=== PATIENT | female | born 1995 | race Caucasian/White ===

== ENCOUNTER 2023-10-01 11:23 | Emergency (ER) | payer BC, SELFPAY ==
[2023-10-01 11:41] VITALS: BP 122/87; PULSE 93; RESP 20; TEMP 36.8; O2SAT 96
[2023-10-01 11:47] LABS: Appearance Urine Cloudy (Clear); Bacteria Urine Rare /hpf; Bilirubin Urine Negative (Negative); Blood Urine 3+ (Negative); Color Urine Dark Yellow (Yellow); Glucose Urine UA Negative (Negative); Ketones Urine Negative (Negative); Leukocyte Esterase Ur 3+ LEU/UL (Negative); Need Manual Microscopic Reviewed; Nitrate Urine Negative (Negative); Non Pathogenic Casts 0-2; Protein Urine 2+ mg/dL (Negative); RBC Urine 21-50 /hpf (0-2); Squamous Epithelial Cell Urine None Seen /hpf (Few); Urobilinogen Urine 0.2 mg/dL (<2.0); WBC Urine >100 /hpf (0-3); pH Urine 6.5 (5.0-9.0)
[2023-10-01 11:50] LABS: Specific Grav Ur 1.003 (1.001-1.035)
[2023-10-01 11:51] LABS: Add Urine Microscopic? YES
--- NOTE | 2023-10-01 12:17 | ED.GENADULT ---
HPI - General Adult General Chief complaint: Urogenital-Female Stated complaint: hematuria Time Seen by Provider: 10/01/23 11:57 Source: patient Mode of arrival: ambulatory Limitations: no limitations History of Present Illness HPI narrative: 28-year-old otherwise healthy here with the complaints of blood in the urine which started this morning. She denies any fever or chills. No history of nausea or vomiting. No previous history of kidney stones or kidney infections. No recent trauma Onset (ago): day(s) (1) Severity: moderate Quality: burning Relieving factors: none Exacerbating factors: none Associated symptoms: denies other symptoms Related Data Allergies Allergy/AdvReac Type Severity Reaction Status Date / Time Penicillins Allergy Headache Verified 10/01/23 11:41 Review of Systems Review of Systems: All systems reviewed & are unremarkable except as noted in HPI and below Constitutional: Constitutional: Reports no additional constitutional complaints Eyes: Eyes: Reports no additional eye complaints ENT: Reports system reviewed and no additional complaints, except as documented Cardiovascular: Cardiovascular: Reports no additional cardiovascular complaints Respiratory: Respiratory: Reports no additional respiratory complaints Gastrointestinal: Gastrointestinal: Reports no additional gastrointestinal complaints Genitourinary: Genitourinary: Reports as per HPI Musculoskeletal: Musculoskeletal: Reports no additional musculoskeletal complaints Neurologic: Reports system reviewed and no additional complaints, except as documented Exam Narrative: GENERAL: Well-appearing, well-nourished, and in no acute distress. HEAD: Normocephalic, atraumatic. EYES: PERRLA and EOMI. ENT: Nares clear, no rhinorrhea or epistaxis. Mucous membranes moist. NECK: Supple. CHEST: Clear to auscultation. No respiratory distress. HEART: Regular rate and rhythm. No murmur heard. Normal peripheral pulses. ABDOMEN: Soft, nontender, nondistended, normal active bowel sounds. EXTREMITIES: Normal range of motion. No edema. SKIN: Warm, dry, no rash. NEURO: No focal deficits. Alert and oriented x3. PSYCH: Normal mood and affect. Course Course Emergency Course: notified patient about the lab work advised her to take antibiotic as prescribed drink plenty of fluids as tolerated. Vital Signs Vital signs: Vital Signs Temperature 36.8 C 10/01/23 11:41 Pulse Rate 93 10/01/23 11:41 Respiratory Rate 20 10/01/23 11:41 Blood Pressure 122/87 10/01/23 11:41 Pulse Oximetry 96 10/01/23 11:41 Oxygen Delivery Room Air 10/01/23 11:41 Temperature 36.8 C 10/01/23 11:41 Pulse Rate 93 10/01/23 11:41 Respiratory Rate 20 10/01/23 11:41 Blood Pressure 122/87 10/01/23 11:41 Pulse Oximetry 96 10/01/23 11:41 Oxygen Delivery Room Air 10/01/23 11:41 Medical Decision Making Vital Signs Vital Signs: Vital Signs Temperature 36.8 C 10/01/23 11:41 Pulse Rate 93 10/01/23 11:41 Respiratory Rate 20 10/01/23 11:41 Blood Pressure 122/87 10/01/23 11:41 Pulse Oximetry 96 10/01/23 11:41 Oxygen Delivery Room Air 10/01/23 11:41 Temperature 36.8 C 10/01/23 11:41 Pulse Rate 93 10/01/23 11:41 Respiratory Rate 20 10/01/23 11:41 Blood Pressure 122/87 10/01/23 11:41 Pulse Oximetry 96 10/01/23 11:41 Oxygen Delivery Room Air 10/01/23 11:41 Lab Data Labs: Lab Results 10/01/23 Range/Units 11:30 Urine Color Dark yellow (Yellow) Urine Appearance Cloudy H (Clear) Urine pH 6.5 (5.0-9.0) Ur Specific Pollock 1.003 (1.001-1.035) Urine Protein 2+ H (Negative) mg/dL Urine Glucose (UA) Negative (Negative) mg/dL Urine Ketones Negative (Negative) mg/dL Ur Blood (Man) 3+ H (Negative) Urine Nitrate Negative (Negative) Urine Bilirubin Negative (Negative) Urine Urobilinogen 0.2 (<2.0) mg/dL Add Ur Microanalysis Reviewed Neri
== END 2023-10-01 12:44 | disposition home or self-care (01) ==
LOC: ANHED 12:21
PROVIDERS: Emergency Medicine; Emergency Provider Family Medicine
DX: N39.0 Urinary tract infection, site not specified (principal)
CPT/HCPCS: 81001; 81025; 87077; 87086; 87088; 87186; 99283

== ENCOUNTER 2024-11-16 13:48 | Observation (INO) | payer BC, SELFPAY ==
[2024-11-16] VITALS (7 sets, daily range): BP systolic 119–168; BP diastolic 66–92; PULSE 53–98; RESP 16–20; TEMP 36.4–36.9; O2SAT 98–100; BMI 24.2
--- NOTE | ~2024-11-16 | CT_ITS ---
EXAMINATION: CT abdomen pelvis wo con DATE: 11/16/2024 16:59 INDICATION: Left flank pain. Nephrolithiasis. TECHNIQUE: Computed tomography (CT) of the abdomen and pelvis was performed without intravenous contr ast. Automated exposure control and iterative reconstruction technique were employed. The dose-length product was 160.13 mGy-cm. COMPARISON: None FINDINGS: Lung bases are clear. Visualized inferior heart is unremarkable. Small pericardial effusion. Liver, g allbladder, spleen, pancreas and bilateral adrenal glands are normal. There is at least partially obs tructing stone at the left ureterovesicular junction with mild left hydroureter but without hydroneph rosis. There is some stranding periureteral stranding along the left ureter. Right kidney is normal w ith no evident right-sided urolithiasis. Bowels including the appendix are normal. Partially decompre ssed bladder is unremarkable. Anteverted uterus and bilateral adnexa are unremarkable. Small amount o f likely physiologic free fluid in the cul-de-sac. No pathologically enlarged abdominal or pelvic lym phadenopathy. Bones are unremarkable. IMPRESSION: 1. At least partially obstructing 4 mm stone at the left ureterovesicular junction with mild left hyd roureter but without cathy hydronephrosis. Reviewed, dictated and finalized at location A. IMPRESSION: 1. At least partially obstructing 4 mm stone at the left ureterovesicular junct ion with mild left hydroureter but without cathy hydronephrosis.
--- OUTSIDE RECORDS SUMMARY | 2024-11-16 13:59 | XMS_ITS | Clinical Summary ---
Author Organization [facility] Address [address], [facility] [address] [place] [address] Phone Care Team Providers Care Manager Product Management Name Role Phone Swathi Bryan MD Unavailable Katharine Barboza APRN, CN Primary Care Provider Allergies Active Allergy Reactions Criticality Noted Date Comments Penicillins Unknown,Other (see Comments) 2018 Body aches Sulfa Antibiotics Unknown,Other (see Comments) 07/16/2021 Body aches Medications Vit-Fe Fumarate-FA ( VITAMIN PO) Take by mouth. Active Active Problems Problem Noted Date Diagnosed Date Iron deficiency 05/22/2024 Social History Tobacco Use Types Packs/Day Years Used Date Smoking Tobacco: Former Cigarettes Q uit: 11/14/2023 Smokeless Tobacco: Never Tobacco Cessation:Counseling Given: No Alcohol Use Standard Drinks/Week Comments Never 0 (1 standard drink = 0.6 oz pur e alcohol) Comments Unknown Sex and Gender Information Value Date Recorded Sex Assigned at Not on file Legal Sex Female 4:40 PM FINISHER HAND Gender Identity Not on file Sexual Orientation Not on file Last Filed Vital Signs Vital Sign Reading Time Taken Comments Blood Pressure 118/70 08/03/2024 8:35 AM CDT Pulse 78 08/03/2024 8:35 AM CDT Temperature 36.5 C (97.7 F) 08/03/2024 8:35 AM CDT Respiratory Rate - - Oxygen Saturation 98% 08/03/2024 8:35 AM CDT Inhaled Oxygen Concentration - - Weight 64 kg (141 lb) 08/03/2024 8:35 AM CDT Height 163.8 cm (5' 4.5) 08/03/2024 8:35 AM CDT Body Mass Index 23.83 08/03/2024 8:35 AM CDT Plan of Treatment Health Maintenance Due Date Last Done Comments Pap Smear 01/29/2017 SARS-COV-2 Immunization ( season) 2023 05/08/2023 Influenza Immunization (#1) 2024 05/08/2023 Respiratory Syncytial Virus (RSV) Immunization (Adult) (1 - 1-dose 75+ series) 01/29/2071 Hepatitis B Immunization Completed 997, 1996, 1996 Human Papillomavirus (HPV) Immunization Completed 12/10/2007, 08/06/2007, 06/04/2007 TdaP Immunization Completed 05/08/2023, 07/19/2014 Hepatitis C Virus (HCV) Screening Completed 12/13/2023 Meningococcal Immunization (ACWY) Aged Out No longer eligible b ased on patient's age to complete this topic Pneumococcal Immunization Combined Aged Out No longer eligible b ased on patient's age to complete this topic Rotavirus Immunization Aged Out No lo nger eligible based on patient's age to complete this topic Insurance MEDICAID [place] Care Teams Manager Product Management Relationship Specialty Start Date End Date Katharine Barboza, СЕРГЕЙ, RAYSA [address] [place] [address] PCP - General Advanced Practice Nurse 05/22/24 Swathi Bryan MD [address] [address] Consulting Physician Oncology 05/21/24
--- OUTSIDE RECORDS SUMMARY | 2024-11-16 13:59 | XMS_ITS | Encounter Summary ---
Author Organization [facility] Address [address] [place] [address] Phone Care Team Providers Care Dwarf Tree Grower Name Role Phone Swathi Bryan MD Unavailable Katharine Barboza APRN, CNM Primary Care Provider Encounter Details Date Type Department Care Team (Late st Contact Info) Description 05/28/2024 Telephone [facility] [address], [facility] [address] [place] [id number] Swathi Bryan MD [address] [place] [address] Social History Tobacco Use Types Packs/Day Years Used Date Smoking Tobacco: Former Cigarettes Q uit: 11/14/2023 Smokeless Tobacco: Never Alcohol Use Standard Drinks/Week Comments Never 0 (1 standard drink = 0.6 oz pur e alcohol) Comments Unknown Sex and Gender Information Value Date Recorded Sex Assigned at Not on file Legal Sex Female 4:40 PM CHOKER SETTER Gender Identity Not on file Sexual Orientation Not on file documented as of this encounter Plan of Treatment Not on file documented as of this encounter Visit Diagnoses Not on filedocumented in this encounter Care Teams Dwarf Tree Grower Relationship Specialty Start Date End Date Katharine Barboza APRN, CNM [address] [place] [address] PCP - General Advanced Practice Nurse 05/22/24 Swathi Bryan MD [address] [id number] Consulting Physician Oncology 05/21/24 documented as of this encounter
--- OUTSIDE RECORDS SUMMARY | 2024-11-16 13:59 | XMS_ITS | Clinical Summary ---
Author Organization [facility] [employer] Address [address] [place] [address] Care Team Providers Care Anesthesia Associate Name Role Phone Jabari, Katharinebrandon Sanderson APRN[facility] Primary Care Provider Source Comments [facility],non-owned Affiliates and Associated Physician Practices is amultiple site organization consisting of ambulatory clinics and hospital sitesin [place], [place], [place] and [place]. This disclosure is being madepursuant to the Care Everywhere program and may not contain all information available regarding this patient. Last updated 18.[facility] [employer] Allergies Active Allergy Reactions Criticality Noted Date Comments Penicillins Other 07/16/2021 Body aches Sulfa Drugs Other 07/16/2021 Body aches Medications * Be aware that medications may not be up to date on this document. Alwaysverify current medications with the patient. 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 Social History Tobacco Use Types Packs/Day Years Used Date Smoking Tobacco: Every Day Cigarettes Smokeless Tobacco: Never Tobacco Cessation:Ready to Q uit: Not Asked; Counseling Given: Not Answered PHQ-2 Answer Date Recorded PHQ2 TOTAL SCORE 0 10/13/2022 Comments No Sex and Gender Information Value Date Recorded Sex Assigned at Not on file Legal Sex Female 12:47 PM CDT Gender Identity Not on file Sexual Orientation Not on file Last Filed Vital Signs Vital Sign Reading Time Taken Comments Blood Pressure 112/64 10/13/2022 12:45 PM CDT Pulse 85 10/13/2022 12:45 PM CDT Temperature 36.3 C (97.3 F) 07/16/2021 1:05 PM CDT Respiratory Rate 16 07/16/2021 1:05 PM CDT Oxygen Saturation 99% 10/13/2022 12:45 PM CDT Inhaled Oxygen Concentration - - Weight 55.1 kg (121 lb 8 oz) 10/13/2022 12:45 PM CDT Height - - Body Mass Index - - Plan of Treatment Health Maintenance Due Date Last Done Comments HIV SCREENING 01/29/2011 DTAP/TDAP/TD VACCINES (1 - Tdap) 01/29/2015 HEPATITIS B VACCINE (1 of 3 - 19+ 3-dose series) 01/29/2015 PNEUMOCOCCAL VACCINE (1 of 2 - PCV) 01/29/2015 PAP SMEAR 01/29/2017 HPV VACCINE (1 - 3-dose SCDM series) 01/29/2023 COVID-19 VACCINE (1 - 2023-2 5 season) 2023 DEPRESSION SCREENING 04/15/2024 10/13/2022 INFLUENZA VACCINE (#1) 2024 ZOSTER VACCINE (1 of 2) 01/29/2046 HEPATITIS C SCREENING Completed 12/13/2023 HIB VACCINE Aged Out No longer eligi ble based on patient's age to complete this topic MENINGOCOCCAL (Group B) VACC INE SHARED DECISION-MAKING Aged Out No longer eligibl e based on patient's age to complete this topic MENINGOCOCCAL GROUPS A/C/Y/W VACCINE Aged Out No longer eligible b ased on patient's age to complete this topic Insurance [facility] MEDICAID Care Teams Anesthesia Associate Relationship Specialty Start Date End Date Katharine Barboza, MONTESSORI TEACHER-CNM [address] [place] [phone] PCP - General Certified Nurse Information Services Tech 05/22/24
--- OUTSIDE RECORDS SUMMARY | 2024-11-16 13:59 | XMS_ITS | Clinical Summary ---
Author Organization [facility] Address [address] [place] [address] Phone Care Team Providers Care Preschool Principal Name Role Phone Geovanna Evangelista DO Primary Care Provider [phone] Allergies No known active allergies Medications oxyCODONE-acetam inophen (PERCOCET) 5-325 mg tablet Take 1 Tablet by mouth every 6 hours as needed for Pain. Max Daily Amount: 4 Tablet 20 Tablet 0 05/11/2015 Active Active Problems Patient Care Coordination No te Formatting of this note migh t be different from the original. 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 Iron deficiency Resolved Problems Problem Noted Date Diagnosed Date Resolved Date Breast lump 04/25/2015 05/24/2015 Social History Tobacco Use Types Packs/Day Years Used Date Smoking Tobacco: Never Smokeless Tobacco: Never Alcohol Use Standard Drinks/Week Comments No 0 (1 standard drink = 0.6 oz pur e alcohol) Comments No Sex and Gender Information Value Date Recorded Sex Assigned at Not on file Legal Sex Female 1:08 PM SYSTEM TRAINER Gender Identity Not on file Sexual Orientation Not on file Last Filed Vital Signs Vital Sign Reading Time Taken Comments Blood Pressure 104/70 05/24/2015 2:17 PM SYSTEM TRAINER Pulse 93 05/24/2015 2:17 PM SYSTEM TRAINER Temperature 36.5 C (97.7 F) 05/11/2015 11:15 AM SYSTEM TRAINER Respiratory Rate 16 05/11/2015 11:15 AM SYSTEM TRAINER Oxygen Saturation 100% 05/11/2015 11:15 AM SYSTEM TRAINER Inhaled Oxygen Concentration - - Weight 56.7 kg (125 lb) 05/24/2015 2:17 PM SYSTEM TRAINER Height 160 cm (5' 3) 05/24/2015 2:17 PM SYSTEM TRAINER Body Mass Index 22.14 05/24/2015 2:17 PM SYSTEM TRAINER Plan of Treatment Health Maintenance Due Date Last Done Comments HPV VACCINES (1 - 3-dose series) 01/29/2011 DTAP/TDAP/TD VACCINES (1 - Tdap) 01/29/2015 HEPATITIS B VACCINES (1 of 3 - 19+ 3-dose series) 01/13 CERVICAL CANCER SCREENING 01/29/2017 HPV/Cotest (21-29) 01/29/2017 PAP SMEAR 01/29/2017 INFLUENZA VACCINE (#1) 2024 Insurance [employer] PPO Advance Directives For more information, please contact: [phone] * Full Code (Latest Code Status on File) Date Activated Date Inactivated Comments 05/11/2015 8:08 AM 05/11/2015 2:06 PM * Full Code Date Activated Date Inactivated Comments 05/11/2015 7:00 AM 05/11/2015 8:08 AM Care Teams Preschool Principal Relationship Specialty Start Date End Date Geovanna Evangelista DO [address] [place] [address] [place] [address] PCP - General Family Practice 04/25/15
--- OUTSIDE RECORDS SUMMARY | 2024-11-16 14:00 | XMS_ITS | Clinical Summary ---
Author Organization [facility] Address [address] [place] [address] Care Team Providers Care Openstack Cloud Consulting Architect Name Role Phone Geovanna Evangelista DO Primary Care Provider [phone] Allergies Active Allergy Reactions Criticality Noted Date Comments Penicillin V Headache Low 12/18/2018 Sulfa Antibiotics Other (see comment) Low Body aches Medications FERROUS SULFATE, 65 MG ELEMENTAL, 325 (65 FE) MG tabletIndication s:Iron deficiency TAKE 1 TABLET BY MOUTH EVERY DAY 90 tablet 1 04/01/2021 Active Active Problems Problem Noted Date Diagnosed Date Encounter for elective induction of labor ([facility]) 07/19/2024 Iron deficiency 10/28/2020 Ureteral calculus 12/18/2018 Post-nasal drainage 06/05/2017 Overview (10/28/2020): Date Onset: 06/05/2017 Sore throat 06/05/2017 Overview (10/28/2020): Date Onset: 06/05/2017 Bruxism (teeth grinding) 08/09/2015 Overview (10/28/2020): Date Onset: 08/09/2015 Insomnia 08/09/2015 Overview (10/28/2020): Date Onset: 08/09/2015 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 Anemia 02/20/2013 Overview (10/28/2020): Date Onset: 02/20/2013 Heavy menses 02/20/2013 Overview (10/28/2020): Date Onset: 02/20/2013 Immunizations Immunization Administration Dates Next Due Dtap (Generic) 08/07/2000, 8,1996,1996,06/1996 HPV 12/10/2007,08/06/2007,06/04/2007 Hepatitis A Vaccine - 2 Dose 06/04/2007,11/28/19 07 Hepatitis B 1996,1996,1996 Hib (Generic) 05/21/1997,1996,1996 ,1996 MMR (Generic) 08/07/2000,05/21/1997 MMR (MMRII) 07/21/2024 Opv 08/07/2000,05/21/1997,1996 ,1996 Tdap (Generic) 07/19/2014 Varicella Vaccine 11/27/2006,08/07/2000 Family History * Patient is adopted Relation Status Comments Father Other Mother Other adopted Social History Tobacco Use Types Packs/Day Years Used Date Smoking Tobacco: Never Smokeless Tobacco: Never Tobacco Cessation:Counseling Given: No Alcohol Use Standard Drinks/Week Comments No 0 (1 standard drink = 0.6 oz pur e alcohol) B1300 Health Literacy Answer Date Recor ded How often do you need to hav e someone help you when you read instructions, pamphlets, or other written material from your doctor or pharmacy? Never 07/19/2024 [employer] Answer Date Recorded In the past 12 months has th e [employer], oil, or water [employer] threatened to shut off services in your home? No 07/19/2024 Humiliation, Afraid, Rape, and Kick questionnair e Answer Date Recorded Within the last year, have y ou been afraid of your partner or ex-partner? No 07/19/2024 Within the last year, have y ou been humiliated or emotionally abused in other ways by your partner or ex-partner? No Within the last year, have y ou been kicked, hit, slapped, or otherwise physically hurt by your partner or ex-partner? No 07/19/2024 Within the last year, have y ou been raped or forced to have any kind of sexual activity by your partner or ex-partner? No 07/19/2024 Social Connection and Isolat ion Panel [NHANES] Answer Date Recorded In a typical week, how many times do you talk on the phone with family, friends, or neighbors? Twice a week 07/19/2024 How often do you get togethe r with friends or relatives? Twice a week 07/19/2024 How often do you attend chur ch or cheondoism services? More than 4 times per year 07/19/2024 Do you belong to any clubs o r organizations such as uatsdin groups, unions, fraternal or athletic groups, or school groups? No 07/19/2024 How often do you attend meet ings of the clubs or organizations you belong to? Never 07/19/2024 Are you , , di vorced, , never , or living with a partner? Living with partner 07/19/2024 AUDIT-C Answer Date Recorded Q1: How often do you have a drink containing alcohol? Never 07/19/2024 Q2: How many drinks containi ng alcohol do you have on a typical day when you are drinking? Patient does not drink Q3: How often do you have si x or more drinks on one occasion? Never 07/19/2024 Overall Financial Resource Strain (CARDIA) Answe r Date Recorded How hard is it for you to pa y for the very basics like food, housing, medical care, and heating? Not hard at all 07/19/2024 PHQ-2 Answer Date Recorded PHQ-2 Score - If the patient scores above 3, please move on to questions 3-9 0 12/25/2021 [facility] Occupat [facility] - Occupational Stress Questionnaire Answer Date Recorded Do you feel stress - tense, restless, nervous, or anxious, or unable to sleep at night because your mind is troubled all the time - these days? Not at all 07/19/2024 Exercise Vital Sign Answer Date Recorde d On average, how many days pe r week do you engage in moderate to strenuous exercise (like a brisk walk)? 4 days 07/19/2024 On average, how many minutes do you engage in exercise at this level? 20 min 07/19/2024 Hunger Vital Sign Answer Date Recorded Within the past 12 months, y ou worried that your food would run out before you got the money to buy more. Never true 07/20/19 25 Within the past 12 months, t he food you bought just didn't last and you didn't have money to get more. Never true 07/19/2024 PRAPARE - Transportation Answer Date Re corded In the past 12 months, has l ack of transportation kept you from medical appointments or from getting medications? No 09/2024 In the past 12 months, has l ack of transportation kept you from meetings, work, or from getting things needed for daily living? No 07/19/2024 Housing Stability Vital Sign Answer Gerber e Recorded In the last 12 months, was t here a time when you were not able to pay the mortgage or rent on time? No 07/19/2024 In the past 12 months, how m any times have you moved where you were living? 0 07/19/2024 At any time in the past [address] [facility], were you homeless or living in a jail (including now)? No 07/19/2024 Depression Answer Date Recor ded Last EPDS Total Score 0 07/22/2024 Last EPDS Self Harm Result Never 07/22 Comments No Sex and Gender Information Value Date Recorded Sex Assigned at Female 05/04/2024 10:02 AM OXYGEN THERAPY TEACHER Legal Sex Female 7:53 AM CDT Gender Identity Not on file Sexual Orientation Not on file Last Filed Vital Signs Vital Sign Reading Time Taken Comments Blood Pressure 115/67 07/22/2024 9:21 AM CDT Pulse 71 07/22/2024 9:21 AM CDT Temperature 36.6 C (97.9 F) 07/22/2024 9:21 AM CDT Respiratory Rate 20 07/22/2024 9:21 AM CDT Oxygen Saturation 99% 07/21/2024 6:15 PM CDT Inhaled Oxygen Concentration - - Weight 73.9 kg (163 lb) 07/19/2024 9:00 PM CDT Height 160 cm (5' 3) 07/19/2024 9:00 PM CDT Body Mass Index 28.87 07/19/2024 9:00 PM CDT Plan of Treatment Health Maintenance Due Date Last Done Comments Cervical Cancer Screening Pap Smear (Age 21 to 29) Every 3 Years 1996 Cervical Cancer Screening 1996 Annual Physical 01/29/1999 COVID-19 Vaccine ( season) 2023 05/08/2023 PHQ-2 (Physician [place]) 04/15/2024 DTaP, Tdap and Td Vaccines (8 - Td or Tdap) 05/08/2033 05/08/2023, 07/19/2014, 08/07/2000, Additional history exists Hepatitis B Vaccines Completed 1996, 1996, 1996 HPV Vaccines Completed 12/10/2007, 07/15, 06/04/2007 Hepatitis C Completed 12/13/2023 Meningococcal B Vaccine Aged Out No l onger eligible based on patient's age to complete this topic Meningococcal Vaccine Aged Out No prabhakar gume eligible based on patient's age to complete this topic Pneumococcal Vaccine: Pediatrics (0 to 5 Years) and At-Risk Patients (6 to 49 Years) Aged Out No longer eligible based on patient's age to complete this topic RSV Immunizations Under 20 Months Aged Out No longer eligible based on patient's age to complete this topic Procedures Procedure Name Priority Date/Time Associated Diagnosis Comments HEPATITIS C ANTIBODY Routine 12/13/2023 10:47 AM CDT Screening for -associate d plasma protein A (HHS/HCC) from Last 3 Months or Most Recently Relevant to Health Maintenance Results * HEPATITIS C ANTIBODY (12/13/2023 10:47 AM CDT) HEPATITIS C AB NON-REACTI VE NON-REACTI VE 12/13/2023 8:27 PM CDT [facility] 12/13/2023 10:4 7 AM CDT us Katharine Barboza CNM LABORATORY Final Result [facility] [address] [place] [address], from Last 3 Months or Most Recently Relevant to Health Maintenance Insurance [facility] C/O PROVIDER SERVICES BORIS LEIJA [id number] Advance Directives * Full Code (Latest Code Status on File) Date Activated Date Inactivated Comments 07/19/2024 9:09 PM 07/22/2024 2:03 PM * Full Code Date Activated Date Inactivated Comments 05/13/2024 3:05 PM 05/13/2024 6:58 PM Care Teams Openstack Cloud Consulting Architect Relationship Specialty Start Date End Date Geovanna Evangelista DO [address] [place] [address] [place] [address] PCP - General FAMILY PRACTICE 12/18/18
--- NOTE | 2024-11-16 14:22 | ED.ABDPAIN ---
HPI - Abdominal Pain General Chief Complaint: Abdominal Pain <Holden Elias APRN - Last Filed: 11/16/24 14:24> Stated Complaint: lower abdominal pain x2 hours <Holden Elias APRN - Last Filed: 11/16/24 14:24> Time Seen by Provider: 11/16/24 17:56 <Holden Elias APRN - Last Filed: 11/16/24 14:24> 29-year-old female presents to the ER complaining of left flank pain for approximately 2 hours. Said sternal left flank and radiated to her left lower abdomen. Patient reports intermittent nausea. She denies any vomiting or diarrhea, or urinary symptoms. Patient says she has a history of kidney stones. Patient denies any fevers, body aches, chills, chest pains, difficulty breathing, or other symptoms. Focused HPI: GENERAL: Well-appearing, well-nourished, and in no acute distress. HEAD: Normocephalic, atraumatic. CHEST: Clear to auscultation. ?No respiratory distress. HEART: Regular rate and rhythm.? GI: Abdomen is soft, nondistended, nontender. No guarding or rigidity. No rebound tenderness. No CVA tenderness. No palpable masses. Bowel sounds are active. NEURO: ?Alert and oriented x3. Patient screened in triage and initial orders placed.? ?Additional care and disposition to be based upon?diagnostic testing and treatment. <Holden Elias APRN - Last Filed: 11/16/24 14:24> History of Present Illness HPI narrative: 29-year-old female with reported history of kidney stone presents to the emergency department for left flank pain left lower quadrant abdominal pain that started at 12:00 p.m. today. Patient reports associated nausea with 1 episode of emesis. She endorses dysuria, urinary frequency and urgency. She denies fever. She does state about 6 years ago she had a urologic procedure performed for kidney stones which she is unsure what it was called. She notes that she had a vaginal delivery in July, she is not currently . Patient received IM Toradol in triage with reported improvement but states pain is starting to return. <Kanchan Calhoun PA-C - Last Filed: 11/16/24 19:39> Related Data Allergies/Adverse Reactions: Allergies Allergy/AdvReac Type Severity Reaction Status Date / Time Penicillins Allergy Headache Verified 11/16/24 13:58 <Holden Elias APRN - Last Filed: 11/16/24 14:24> Review of Systems Review of Systems: All systems reviewed & are unremarkable except as noted in HPI and below <Kanchan Calhoun PA-C - Last Filed: 11/16/24 19:39> Exam Narrative: GENERAL: Well-appearing, well-nourished, and in no acute distress. HEAD: Normocephalic, atraumatic. EYES: EOMI. ENT: Nares clear, no rhinorrhea or epistaxis. Mucous membranes moist. NECK: Supple. CHEST: Clear to auscultation. No respiratory distress. HEART: Regular rate and rhythm. No murmur heard. Normal peripheral pulses. ABDOMEN: Normoactive bowel sounds. Minimal tenderness to the left lower quadrant. No rebound or rigidity. Mild left CVA tenderness EXTREMITIES: Normal range of motion. No edema. SKIN: Warm, dry, no rash. NEURO: No focal deficits. Alert and oriented x3 <Kanchan Calhoun PA-C - Last Filed: 11/16/24 19:39> Course DISTILLATION OPERATOR HELPER/PA Physician Supervision i did review thechart , agree with the plan <Fox Nolen MD - Last Filed: 11/16/24 18:49> Vital Signs Vital signs: Vital Signs Temperature 36.4 C L 11/16/24 13:59 Pulse Rate 53 L 11/16/24 13:59 Respiratory Rate 16 11/16/24 13:59 Blood Pressure 168/88 H 11/16/24 13:59 Pulse Oximetry 100 11/16/24 13:59 Oxygen Delivery Room Air 11/16/24 13:59 Temperature 36.8 C 11/16/24 17:56 Pulse Rate 98 11/16/24 17:56 Respiratory Rate 16 11/16/24 17:56 Blood Pressure 127/66 11/16/24 17:56 Pulse Oximetry 99 11/16/24 17:56 Oxygen Delivery Room Air 11/16/24 13:59 <Holden Elias APRN - Last Filed: 11/16/24 14:24> Vital Signs Temperature 36.4 C L 11/16/24 13:59 Pulse Rate 53 L 11/16/24 13:59 Respiratory Rate 16 11/16/24 13:59 Blood Pressure 168/88 H 11/16/24 13:59 Pulse Oximetry 100 11/16/24 13:59 Oxygen Delivery Room Air 11/16/24 13:59 Temperature 36.8 C 11/16/24 17:56 Pulse Rate 98 11/16/24 17:56 Respiratory Rate 16 11/16/24 17:56 Blood Pressure 127/66 11/16/24 17:56 Pulse Oximetry 99 11/16/24 17:56 Oxygen Delivery Room Air 11/16/24 13:59 <Kanchan Calhoun PA-C - Last Filed: 11/16/24 19:39> Vital Signs Temperature 36.4 C L 11/16/24 13:59 Pulse Rate 53 L 11/16/24 13:59 Respiratory Rate 16 11/16/24 13:59 Blood Pressure 168/88 H 11/16/24 13:59 Pulse Oximetry 100 11/16/24 13:59 Oxygen Delivery Room Air 11/16/24 13:59 Temperature 36.8 C 11/16/24 17:56 Pulse Rate 98 11/16/24 17:56 Respiratory Rate 16 11/16/24 17:56 Blood Pressure 127/66 11/16/24 17:56 Pulse Oximetry 99 11/16/24 17:56 Oxygen Delivery Room Air 11/16/24 13:59 <Fox Nolen MD - Last Filed: 11/16/24 18:49> MDM - Abdominal Pain MDM Narrative Medical decision making narrative: 29-year-old female presents emergency department for left flank pain left lower quadrant abdominal pain that started at 12:00 p.m. today. Vitals stable at the time of my evaluation. Patient is afebrile and nontoxic appearing. Exam is notable for the above. CBC with leukocytosis of 13.3 and hemoconcentration with a hemoglobin of 15.9. Fluids provided. Chemistries with normal creatinine. UA indicative of urinary tract infection with 5100 white blood cells, greater than 100 RBCs, 1+ leuk esterase and 4+ bacteria. There is many squamous epithelial cells. Urine culture pending. is negative. CT abdomen pelvis shows at least partially obstructing 4 mm stone at the left ureterovesicular junction with mild left hydroureter but without cathy hydronephrosis. Patient updated on results. Discussed case with Urology on-call, Dr. Carroll, who advises admission, Rocephin, nightly Flomax, strain all urine. Patient agrees to admission. Discussed with hospitalist DISTILLATION OPERATOR HELPER, Aníbal, who agrees to admission. Morphine and Zofran provided for symptomatic control. <Kanchan Calhoun PA-C - Last Filed: 11/16/24 19:39> Lab Data Result diagrams: 11/16/24 16:37 11/16/24 16:37 <Holden Elias APRN - Last Filed: 11/16/24 14:24> Labs: Lab Results 11/16/24 11/16/24 Range/Units 16:37 16:41 WBC 13.3 H (4.5-10.0) K/mm3 RBC 4.95 (4.2-5.4) M/mm3 Hgb 15.9 H (12.0-15.0) g/dL Hct 45.3 (37.0-47.0) % MCV 91.5 (80-100) fl MCH 32.1 (26-34) pg MCHC 35.1 (32-36) g/dl RDW 12.3 (11.5-14.5) % Plt Count 180 (150-375) k/mm3 MPV 12.2 H (7.4-10.4) fl Immature Gran % (Auto) 0.5 (0-0.5) % Neut % (Auto) 89.9 H (45.5-73.1) % Lymph % (Auto) 7.8 L (18.3-44.2) % [place] % (Auto) 1.6 L (2.6-8.5) % Eos % (Auto) 0.0 (0-4.4) % Baso % (Auto) 0.2 (0.2-1.2) % Lymph # (Auto) 1.04 (0.9-3.2) K/mm3 [place] # (Auto) 0.2 (0.1-0.6) K/mm3 Eos # (Auto) 0.0 (0-0.3) K/mm3 Baso # (Auto) 0.0 (0.0-0.1) K/mm3 Abs Immat Gran (auto) 0.06 H (0.00-0.031) K/mm3 Absolute Neuts (auto) 11.9 H (1.3-6.7) K/mm3 Absolute Nucleated RBC 0.000 (0.0-0.012) K/mm3 Nucleated RBC % 0.0 (0.0-0.2) % Sodium 141 (137-145) mmol/L Potassium 4.1 (3.4-5.0) mmol/L Chloride 106 (98-107) mmol/L Carbon Dioxide 23 (22-30) mmol/L Anion Gap 12 (4-12) mmol/L BUN 18 H (7-17) mg/dL Creatinine 0.99 (0.7-1.0) mg/dL Estim Creat Clear Calc 62 ml/min Estimated GFR > 60 (59 - ) Glucose 116 H (65-110) mg/dL Calcium 10.0 (8.4-10.2) mg/dL Total Bilirubin 0.8 (0.2-1.3) mg/dL AST 29 (14-36) U/L ALT 20 (6-35) U/L Alkaline Phosphatase 59 (38-126) U/L Total Protein 9.1 H (6.3-8.2) g/dL Albumin 5.3 H (3.5-5.1) g/dL Urine Color Dark yellow (Yellow) Urine Appearance Cloudy H (Clear) Urine pH 7.0 (5.0-9.0) Ur Specific [employer] 1.032 (1.001-1.035) Urine Protein 2+ H (Negative) mg/dL Urine Glucose (UA) Negative (Negative) mg/dL Urine Ketones 4+ H (Negative) mg/dL Ur Blood (Man) 3+ H (Negative) Urine Nitrate Negative (Negative) Urine Bilirubin Negative (Negative) Urine Urobilinogen 1.0 (<2.0) mg/dL Add Ur Microanalysis Reviewed Leukocyte Esterase Rfl 1+ H (Negative) GENNA/UL Urine RBC >100 H (0-2) /hpf Urine WBC 51-100 H (0-3) /hpf Ur Squamous Epith Cells Many H (Few) /hpf Urine Bacteria 4+ H /hpf Urine Casts 3-5 Urine Mucus Present /lpf POC Urine HCG, Qual Negative (Negative) <Holden Elias, ELECTRONIC SCALE TESTER - Last Filed: 11/16/24 14:24> Lab Results 11/16/24 11/16/24 Range/Units 16:37 16:41 WBC 13.3 H (4.5-10.0) K/mm3 RBC 4.95 (4.2-5.4) M/mm3 Hgb 15.9 H (12.0-15.0) g/dL Hct 45.3 (37.0-47.0) % MCV 91.5 (80-100) fl MCH 32.1 (26-34) pg MCHC 35.1 (32-36) g/dl RDW 12.3 (11.5-14.5) % Plt Count 180 (150-375) k/mm3 MPV 12.2 H (7.4-10.4) fl Immature Gran % (Auto) 0.5 (0-0.5) % Neut % (Auto) 89.9 H (45.5-73.1) % Lymph % (Auto) 7.8 L (18.3-44.2) % [place] % (Auto) 1.6 L (2.6-8.5) % Eos % (Auto) 0.0 (0-4.4) % Baso % (Auto) 0.2 (0.2-1.2) % Lymph # (Auto) 1.04 (0.9-3.2) K/mm3 [place] # (Auto) 0.2 (0.1-0.6) K/mm3 Eos # (Auto) 0.0 (0-0.3) K/mm3 Baso # (Auto) 0.0 (0.0-0.1) K/mm3 Abs Immat Gran (auto) 0.06 H (0.00-0.031) K/mm3 Absolute Neuts (auto) 11.9 H (1.3-6.7) K/mm3 Absolute Nucleated RBC 0.000 (0.0-0.012) K/mm3 Nucleated RBC % 0.0 (0.0-0.2) % Sodium 141 (137-145) mmol/L Potassium 4.1 (3.4-5.0) mmol/L Chloride 106 (98-107) mmol/L Carbon Dioxide 23 (22-30) mmol/L Anion Gap 12 (4-12) mmol/L BUN 18 H (7-17) mg/dL Creatinine 0.99 (0.7-1.0) mg/dL Estim Creat Clear Calc 62 ml/min Estimated GFR > 60 (59 - ) Glucose 116 H (65-110) mg/dL Calcium 10.0 (8.4-10.2) mg/dL Total Bilirubin 0.8 (0.2-1.3) mg/dL AST 29 (14-36) U/L ALT 20 (6-35) U/L Alkaline Phosphatase 59 (38-126) U/L Total Protein 9.1 H (6.3-8.2) g/dL Albumin 5.3 H (3.5-5.1) g/dL Urine Color Dark yellow (Yellow) Urine Appearance Cloudy H (Clear) Urine pH 7.0 (5.0-9.0) Ur Specific [employer] 1.032 (1.001-1.035) Urine Protein 2+ H (Negative) mg/dL Urine Glucose (UA) Negative (Negative) mg/dL Urine Ketones 4+ H (Negative) mg/dL Ur Blood (Man) 3+ H (Negative) Urine Nitrate Negative (Negative) Urine Bilirubin Negative (Negative) Urine Urobilinogen 1.0 (<2.0) mg/dL Add Ur Microanalysis Reviewed Leukocyte Esterase Rfl 1+ H (Negative) GENNA/UL Urine RBC >100 H (0-2) /hpf Urine WBC 51-100 H (0-3) /hpf Ur Squamous Epith Cells Many H (Few) /hpf Urine Bacteria 4+ H /hpf Urine Casts 3-5 Urine Mucus Present /lpf POC Urine HCG, Qual Negative (Negative) <Kanchan Calhoun PA-C - Last Filed: 11/16/24 19:39> Lab Results 11/16/24 11/16/24 Range/Units 16:37 16:41 WBC 13.3 H (4.5-10.0) K/mm3 RBC 4.95 (4.2-5.4) M/mm3 Hgb 15.9 H (12.0-15.0) g/dL Hct 45.3 (37.0-47.0) % MCV 91.5 (80-100) fl MCH 32.1 (26-34) pg MCHC 35.1 (32-36) g/dl RDW 12.3 (11.5-14.5) % Plt Count 180 (150-375) k/mm3 MPV 12.2 H (7.4-10.4) fl Immature Gran % (Auto) 0.5 (0-0.5) % Neut % (Auto) 89.9 H (45.5-73.1) % Lymph % (Auto) 7.8 L (18.3-44.2) % [place] % (Auto) 1.6 L (2.6-8.5) % Eos % (Auto) 0.0 (0-4.4) % Baso % (Auto) 0.2 (0.2-1.2) % Lymph # (Auto) 1.04 (0.9-3.2) K/mm3 [place] # (Auto) 0.2 (0.1-0.6) K/mm3 Eos # (Auto) 0.0 (0-0.3) K/mm3 Baso # (Auto) 0.0 (0.0-0.1) K/mm3 Abs Immat Gran (auto) 0.06 H (0.00-0.031) K/mm3 Absolute Neuts (auto) 11.9 H (1.3-6.7) K/mm3 Absolute Nucleated RBC 0.000 (0.0-0.012) K/mm3 Nucleated RBC % 0.0 (0.0-0.2) % Sodium 141 (137-145) mmol/L Potassium 4.1 (3.4-5.0) mmol/L Chloride 106 (98-107) mmol/L Carbon Dioxide 23 (22-30) mmol/L Anion Gap 12 (4-12) mmol/L BUN 18 H (7-17) mg/dL Creatinine 0.99 (0.7-1.0) mg/dL Estim Creat Clear Calc 62 ml/min Estimated GFR > 60 (59 - ) Glucose 116 H (65-110) mg/dL Calcium 10.0 (8.4-10.2) mg/dL Total Bilirubin 0.8 (0.2-1.3) mg/dL AST 29 (14-36) U/L ALT 20 (6-35) U/L Alkaline Phosphatase 59 (38-126) U/L Total Protein 9.1 H (6.3-8.2) g/dL Albumin 5.3 H (3.5-5.1) g/dL Urine Color Dark yellow (Yellow) Urine Appearance Cloudy H (Clear) Urine pH 7.0 (5.0-9.0) Ur Specific [employer] 1.032 (1.001-1.035) Urine Protein 2+ H (Negative) mg/dL Urine Glucose (UA) Negative (Negative) mg/dL Urine Ketones 4+ H (Negative) mg/dL Ur Blood (Man) 3+ H (Negative) Urine Nitrate Negative (Negative) Urine Bilirubin Negative (Negative) Urine Urobilinogen 1.0 (<2.0) mg/dL Add Ur Microanalysis Reviewed Leukocyte Esterase Rfl 1+ H (Negative) GENNA/UL Urine RBC >100 H (0-2) /hpf Urine WBC 51-100 H (0-3) /hpf Ur Squamous Epith Cells Many H (Few) /hpf Urine Bacteria 4+ H /hpf Urine Casts 3-5 Urine Mucus Present /lpf POC Urine HCG, Qual Negative (Negative) <Fox Nolen MD - Last Filed: 11/16/24 18:49> Imaging Data Radiologist's impression: ITS Impressions Abdomen/Pelvis CT 11/16/24 17:03 IMPRESSION: 1. At least partially obstructing 4 mm stone at the left ureterovesicular junction with mild left hydroureter but without cathy hydronephrosis. <Holden Elias APRN - Last Filed: 11/16/24 14:24> ITS Impressions Abdomen/Pelvis CT 11/16/24 17:03 IMPRESSION: 1. At least partially obstructing 4 mm stone at the left ureterovesicular junction with mild left hydroureter but without cathy hydronephrosis. <Kanchan Calhoun PA-C - Last Filed: 11/16/24 19:39> ITS Impressions Abdomen/Pelvis CT 11/16/24 17:03 IMPRESSION: 1. At least partially obstructing 4 mm stone at the left ureterovesicular junction with mild left hydroureter but without cathy hydronephrosis. <Fox Nolen MD - Last Filed: 11/16/24 18:49> Discharge Plan Discharge Clinical Impression: Ureterolithiasis UTI (urinary tract infection) Qualifiers: Urinary tract infection type: acute cystitis Hematuria presence: with hematuria Qualified Code(s): N30.01 - Acute cystitis with hematuria <Holden Elias APRN - Last Filed: 11/16/24 14:24> Patient Disposition: Still a Patient <Holden Elias APRN - Last Filed: 11/16/24 14:24> Condition: Stable <Holden Elias APRN - Last Filed: 11/16/24 14:24> Instructions: Antibiotic Form <Holden Elias APRN - Last Filed: 11/16/24 14:24> Patient Language: Pashto <Holden Elias APRN - Last Filed: 11/16/24 14:24> Prescriptions: No Action ciprofloxacin HCl [Cipro] 500 mg tablet 500 mg PO Q12H Qty: 14 0RF <Holden Elias APRN - Last Filed: 11/16/24 14:24> Follow-up/Referrals: PHYSICIAN,PROTEIN PURIFICATION SCIENTIST [Primary Care Provider] - <Holden Elias APRN - Last Filed: 11/16/24 14:24>
[2024-11-16] MEDS: KETOROLAC 30 MG/ML VIAL (*BKC) IM (14:54)
--- OUTSIDE RECORDS SUMMARY | 2024-11-16 14:55 | XMS_ITS | Encounter Summary ---
Author Organization [facility] Address [address] [place] [address] Phone Care Team Providers Care Recreation Adviser Name Role Phone Swathi Bryan MD Unavailable Katharine Barboza APRN, CNM Primary Care Provider Encounter Details Date Type Department Care Team (Late st Contact Info) Description 05/28/2024 Telephone [facility] [address], [facility] [address] [place] [phone] Swathi Bryan MD [address] [place] [address] Social History Tobacco Use Types Packs/Day Years Used Date Smoking Tobacco: Former Cigarettes Q uit: 11/14/2023 Smokeless Tobacco: Never Alcohol Use Standard Drinks/Week Comments Never 0 (1 standard drink = 0.6 oz pur e alcohol) Comments Unknown Sex and Gender Information Value Date Recorded Sex Assigned at Not on file 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
--- OUTSIDE RECORDS SUMMARY | 2024-11-16 14:55 | XMS_ITS | Clinical Summary ---
Author Organization [facility] Address [address] [facility] [place] [address] Care Team Providers Care Wreath Machine Tender Name Role Phone Jabari, Katharinebrandon Sanderson APRN-[facility] Primary Care Provider Source Comments [facility],non-owned Affiliates and Associated Physician Practices is amultiple site organization consisting of ambulatory clinics and hospital sitesin [place], [place], [place] and [place]. This disclosure is being madepursuant to the Care Everywhere program and may not contain all information available regarding this patient. Last updated 18.[facility] Allergies Active Allergy Reactions Criticality Noted Date [...] patient's age to complete this topic Insurance [facility] MEDICAID Care Teams Wreath Machine Tender Relationship Specialty Start Date End Date Katharine Barboza, RETAIL SUPPORT ASSOCIATE-CNM [address] [place] [phone] PCP - General Certified Nurse Peer Tutor 05/22/24
--- OUTSIDE RECORDS SUMMARY | 2024-11-16 14:55 | XMS_ITS | Clinical Summary ---
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
--- OUTSIDE RECORDS SUMMARY | 2024-11-16 14:56 | XMS_ITS | Clinical Summary ---
Author Organization [facility] Address [address] [place] [address] Care Team Providers Care Per Diem Physical Therapist Name Role Phone Geovanna Evangelista DO Primary Care Provider [phone] Allergies Active Allergy Reactions Criticality Noted Date Comments Penicillin V Headache Low 12/18/2018 Sulfa Antibiotics Other (see comment) Low Body aches Medications FERROUS SULFATE, 65 MG ELEMENTAL, 325 (65 FE) MG tabletIndication s:Iron deficiency TAKE 1 TABLET BY MOUTH EVERY DAY 90 tablet 1 04/01/2021 Active Active Problems Problem Noted Date Diagnosed Date Encounter for elective induction of labor ([facility]) 07/19/2024 Iron deficiency 10/28/2020 Ureteral calculus [...] from your doctor or pharmacy? Never 07/19/2024 [employer] Answer Date Recorded In the past 12 months has th e Pregg[employer], oil, or water [employer] threatened to shut off services in your [...] often do you attend chur ch or adventist services? More than 4 times per year 07/19/2024 Do you belong to any clubs o r organizations such as moravian groups, unions, fraternal or athletic groups, or [...] move on to questions 3-9 0 12/25/2021 [facility] [place] of Occupat ional Health - Occupational Stress [...] any time in the past 12 m [facility], were you homeless or living in a prison (including now)? No 07/19/2024 Depression Answer Date Recor ded Last EPDS Total Score 0 07/22/2024 Last EPDS Self Harm Result Never 07/22 Comments No Sex and Gender Information Value Date Recorded Sex Assigned at Female 05/04/2024 10:02 AM POLYMER MATERIALS CONSULTANT Legal Sex Female 7:53 AM CDT Gender [...] Vaccine ( season) 2023 05/08/2023 PHQ-2 (Physician Elsa) 04/15/2024 DTaP, Tdap and Td Vaccines (8 [...] VE NON-REACTI VE 12/13/2023 8:27 PM CDT [facility] 12/13/2023 10:4 7 AM CDT us Katharine Barboza CNM LABORATORY Final Result [facility] [address] [place] [address], from Last 3 Months or Most Recently Relevant to Health Maintenance Insurance [facility] C/O PROVIDER SERVICES [place]ORIS LEIJA [id number] Advance Directives * Full Code (Latest Code Status on File) Date Activated Date Inactivated Comments 07/19/2024 9:09 PM 07/22/2024 2:03 PM * Full Code Date Activated Date Inactivated Comments 05/13/2024 3:05 PM 05/13/2024 6:58 PM Care Teams Per Diem Physical Therapist Relationship Specialty Start Date End Date Geovanna Evangelista DO [address] [place] [address] [place] [address] PCP - General FAMILY PRACTICE 12/18/18
--- OUTSIDE RECORDS SUMMARY | 2024-11-16 14:56 | XMS_ITS | Clinical Summary ---
Author Organization [facility] Address [address] [place] [address] Phone Care Team Providers Care Ordinary Seaman Name Role Phone Geovanna Evangelista DO Primary Care Provider [phone] Allergies No known active allergies Medications oxyCODONE-acetam inophen (PERCOCET) 5-325 mg tablet Take 1 Tablet by mouth every 6 hours as needed for Pain. Max Daily Amount: 4 Tablet 20 Tablet 0 05/11/2015 Active Active Problems Patient Care Coordination No te Formatting of this note migh t be different from the original. Primary Care: Geovanna Evangelista DO Referring Provider: Geovanna Evangelista DO [facility] [place] [address] Other: Problem Noted Date Diagnosed Date Fibroadenoma [...] on file Legal Sex Female 1:08 PM MICROFILM OPERATOR Gender Identity Not on file Sexual Orientation Not on file Last Filed Vital Signs Vital Sign Reading Time Taken Comments Blood Pressure 104/70 05/24/2015 2:17 PM MICROFILM OPERATOR Pulse 93 05/24/2015 2:17 PM MICROFILM OPERATOR Temperature 36.5 C (97.7 F) 05/11/2015 11:15 AM MICROFILM OPERATOR Respiratory Rate 16 05/11/2015 11:15 AM MICROFILM OPERATOR Oxygen Saturation 100% 05/11/2015 11:15 AM MICROFILM OPERATOR Inhaled Oxygen Concentration - - Weight 56.7 kg (125 lb) 05/24/2015 2:17 PM MICROFILM OPERATOR Height 160 cm (5' 3) 05/24/2015 2:17 PM MICROFILM OPERATOR Body Mass Index 22.14 05/24/2015 2:17 PM MICROFILM OPERATOR Plan of Treatment Health Maintenance Due Date Last Done Comments HPV VACCINES (1 - 3-dose series) 01/29/2011 DTAP/TDAP/TD VACCINES (1 - Tdap) 01/29/2015 HEPATITIS B VACCINES (1 of 3 - 19+ 3-dose series) 01/13 CERVICAL CANCER SCREENING 01/29/2017 HPV/Cotest (21-29) 01/29/2017 PAP SMEAR 01/29/2017 INFLUENZA VACCINE (#1) 2024 Insurance [email or web address] PPO Advance Directives For more information, please contact: [phone] * Full Code (Latest Code Status on File) Date Activated Date Inactivated Comments 05/11/2015 8:08 AM 05/11/2015 2:06 PM * Full Code Date Activated Date Inactivated Comments 05/11/2015 7:00 AM 05/11/2015 8:08 AM Care Teams Ordinary Seaman Relationship Specialty Start Date End Date Geovanna Evangelista DO [address] [place] [address] [place] [address] PCP - General Family Practice 04/25/15
[2024-11-16 16:42] LABS: BEDSIDEPREGUCG Negative (Negative)
[2024-11-16 16:56] LABS: Hematocrit 45.3 % (37.0-47.0); Hemoglobin 15.9 g/dL (12.0-15.0); Immature Granulocyte Percent A 0.5 % (0-0.5); Lymphocytes Absolute Auto 1.04 K/mm3 (0.9-3.2); Mean Corpuscular HGB Conc 35.1 g/dl (32-36); Mean Corpuscular Hemoglobin 32.1 pg (26-34); Mean Corpuscular Volume 91.5 fl (80-100); Nucleated Red Blood Cells Absolute Auto 0.000 K/mm3 (0.0-0.012); Nucleated Red Blood Cells Perc 0.0 % (0.0-0.2); Platelet Count Result 180 k/mm3 (150-375); Red Blood Count 4.95 M/mm3 (4.2-5.4); White Blood Count 13.3 K/mm3 (4.5-10.0)
[2024-11-16 17:09] LABS: Alanine Aminotransferase 20 U/L (6-35); Albumin Level 5.3 g/dL (3.5-5.1); Alkaline Phosphatase 59 U/L (38-126); Anion Gap 12 mmol/L (4-12); Aspartate Amino Transferase 29 U/L (14-36); Bilirubin,Total 0.8 mg/dL (0.2-1.3); Blood Urea Nitrogen 18 mg/dL (7-17); Calcium 10.0 mg/dL (8.4-10.2); Carbon Dioxide 23 mmol/L (22-30); Chloride 106 mmol/L (98-107); Estimated CRCL calculation 62 ml/min; Estimated Glomerular Filt Rate > 60; Glucose 116 mg/dL (65-110); Potassium 4.1 mmol/L (3.4-5.0); Sodium 141 mmol/L (137-145); Total Protein 9.1 g/dL (6.3-8.2)
[2024-11-16 17:21] LABS: Add Urine Microscopic? YES; Appearance Urine Cloudy (Clear); Glucose Urine UA Negative (Negative); Leukocyte Esterase Ur 1+ LEU/UL (Negative); Need Manual Microscopic Reviewed; Nitrate Urine Negative (Negative); Specific Grav Ur 1.032 (1.001-1.035)
[2024-11-16] MEDS: MORPHINE SULFATE (*CRX) 4 MG/ML INJ IV PUSH (18:45)
[2024-11-16] MEDS: SODIUM CHLORIDE 0.9% IV 1,000 ML 999 ML IV CONT (18:45)
[2024-11-16] MEDS: ONDANSETRON INJ 4 MG/2 ML VIAL IV PUSH (18:45)
[2024-11-16] MEDS: cefTRIAXone 1 GM in SODIUM CHLORIDE 0.9% IV 50 ML 100 ML IVPB (18:46)
[2024-11-16] MEDS: HYDROcodone/acetaminophen (*CRX) 5-325 MG TABLET 1 TAB PO (18:50)
[2024-11-16] MEDS: TAMSULOSIN HCL 0.4 MG CAPSULE PO (18:54)
[2024-11-16] MEDS: SODIUM CHLORIDE 0.9% IV 1,000 ML 100 ML IV CONT (19:28)
--- NOTE | 2024-11-16 19:34 | PC.NURSE ---
Assumed care of patient after receiving bedside report from DAKOTA Downs. Maintenance fluids started at this time. Pt has no concerns. Vitals WNL.
--- NOTE | 2024-11-16 20:05 | PM.IMHP ---
H&P: HPI History of Present Illness Date/Time: 11/16/24 20:05 Chief Complaint: Ureteral stone with UTI Narrative: This is a 29-year-old female patient admitted to the hospital with UTI and left ureteral stone. Patient reports she developed left sided abdominal cramping about a week ago and thought it was related to her period but symptoms would continue to come and go. Today around noon she developed significant Left Upper Quadrant/flank discomfort that quickly moved to left sided pelvic pain with associated nausea and vomiting. In ER she had urine that had hematuria and signs of infection. Patient reports dysuria and urgency started this afternoon as well. She has a remote history about 6 years ago of having kidney stones that were seen on imaging and not found on cystoscopy indicating she was able to pass them in the interim between diagnosis and procedure. She notes that was around the time her first child was 8 months old. This time her second child is about 4 months old. Review of records shows that patient had a urinary tract infection in September of 2023 with culture that grew E. coli that was resistant to cefazolin and Unasyn and intermediate to Augmentin. She was treated that time with Cipro. On this visit she was given Rocephin in ER as this was sensitive and does not meet criteria for ESBL infection. Urology was consulted in ER and will see patient tomorrow with possibility of procedure so patient will be NPO after midnight. Review of Systems Review of Systems: All systems reviewed & are unremarkable except as noted in HPI and below [facility] Social History Social History Smoking packs per day: 0.25 Smoking cigarettes per day: 5.0 Years smoked: 2 Smoking pack-years: 0.50 Smoking status: Current some day smoker Second hand tobacco smoke exposure: Yes Alcohol intake: never Substance use: current Substance use type: marijuana Lack of Transportation: No Lack of Food: Never True Current Housing: I Have Housing Concerned About Future Housing: No Difficulty Paying Gas/Electric Bills: No Difficulty Paying for Meds: No Currently Unemployed: No Education: Trade/Vocational Certificate Difficulty w/ Childcare or Family Care: No Spiritual care concerns: No Meds Home Medications and Allergies Home Medications ?Medication ?Instructions ?Recorded ?Confirmed ?Type ciprofloxacin HCl 500 mg tablet 500 mg PO Q12H #14 tabs 10/01/23 Rx (Cipro) Allergies Allergy/AdvReac Type Severity Reaction Status Date / Time Penicillins Allergy Headache Verified 11/16/24 13:58 Vital Signs Vital Signs - 24 hr 11/16/24 13:59 11/16/24 14:57 11/16/24 17:56 Temperature 36.4 C L 36.8 C Pulse Rate 53 L 93 98 Respiratory Rate 16 18 16 Blood Pressure 168/88 H 155/92 H 127/66 Pulse Oximetry 100 100 99 Oxygen Delivery Room Air 11/16/24 18:57 11/16/24 19:30 Temperature 36.6 C Pulse Rate 68 65 Respiratory Rate 18 20 Blood Pressure 119/80 127/86 Pulse Oximetry 99 98 Oxygen Delivery Exam Narrative: GENERAL: Well-appearing, well-nourished, and in no acute distress. HEAD: Normocephalic, atraumatic. EYES: EOMI. ENT: Nares clear, no rhinorrhea or epistaxis. Mucous membranes moist. NECK: Supple. CHEST: Clear to auscultation. No respiratory distress. HEART: Regular rate and rhythm. No murmur heard. Normal peripheral pulses. ABDOMEN: Normoactive bowel sounds. Minimal tenderness to the left lower quadrant. No rebound or rigidity. Mild left CVA tenderness EXTREMITIES: Normal range of motion. No edema. SKIN: Warm, dry, no rash. NEURO: No focal deficits. Alert and oriented x3 H&P: Results Labs Labs: Short CBC 11/16/24 Range/Units 16:37 WBC 13.3 H (4.5-10.0) K/mm3 Hgb 15.9 H (12.0-15.0) g/dL Hct 45.3 (37.0-47.0) % Plt Count 180 (150-375) k/mm3 BMP 11/16/24 16:37 Sodium 141 Potassium 4.1 Chloride 106 Carbon Dioxide 23 BUN 18 H Creatinine 0.99 Glucose 116 H Calcium 10.0 Liver Function 11/16/24 Range/Units 16:37 Total Bilirubin 0.8 (0.2-1.3) mg/dL AST 29 (14-36) U/L ALT 20 (6-35) U/L Alkaline Phosphatase 59 (38-126) U/L Albumin 5.3 H (3.5-5.1) g/dL Urine 11/16/24 Range/Units 16:37 Urine Color Dark yellow (Yellow) Urine Appearance Cloudy H (Clear) Urine pH 7.0 (5.0-9.0) Ur Specific [place] 1.032 (1.001-1.035) Urine Protein 2+ H (Negative) mg/dL Urine Glucose (UA) Negative (Negative) mg/dL Pulse Oximetry SpO2 results: 98-100% on room air Attestation: I personally reviewed and interpreted this pulse oximetry as follows: Interpretation: No need for supplemental oxygenation at this time Imaging CT scan - abdomen: Radiologist's impression: EXAMINATION: CT abdomen pelvis wo con DATE: 11/16/2024 16:59 INDICATION: Left flank pain. Nephrolithiasis. TECHNIQUE: Computed tomography (CT) of the abdomen and pelvis was performed without intravenous contrast. Automated exposure control and iterative reconstruction technique were employed. The dose-length product was 160.13 mGy-cm. COMPARISON: None FINDINGS: Lung bases are clear. Visualized inferior heart is unremarkable. Small pericardial effusion. Liver, gallbladder, spleen, pancreas and bilateral adrenal glands are normal. There is at least partially obstructing stone at the left ureterovesicular junction with mild left hydroureter but without hydronephrosis. There is some stranding periureteral stranding along the left ureter. Right kidney is normal with no evident right-sided urolithiasis. Bowels including the appendix are normal. Partially decompressed bladder is unremarkable. Anteverted uterus and bilateral adnexa are unremarkable. Small amount of likely physiologic free fluid in the cul-de-sac. No pathologically enlarged abdominal or pelvic lymphadenopathy. Bones are unremarkable. IMPRESSION: 1. At least partially obstructing 4 mm stone at the left ureterovesicular junction with mild left hydroureter but without cathy hydronephrosis. Reviewed, dictated and finalized at location A. Assessment and Plan Assessment and plan (1) Ureterolithiasis: Code(s): N20.1 - Calculus of ureter Status: Acute Assessment and Plan: -Partially or completely obstructing left ureteral stone 4 mm at the UVJ with hydroureter and findings to support UTI -Strain all urine and admit for Urology to see tomorrow -NPO after midnight for possible procedure tomorrow -Prior history of stones after first child born and now after second child was born. (2) UTI (urinary tract infection): Qualifiers: Hematuria presence: with hematuria Urinary tract infection type: acute cystitis Qualified Code(s): N30.01 - Acute cystitis with hematuria Code(s): N39.0 - Urinary tract infection, site not specified Status: Acute Assessment and Plan: -UA with 4+ bacteria, 1+ leukocyte esterase, 51-100 WBCs with hematuria and ketones as well -WBC 13.3, afebrile -IV antibiotics (Rocephin) given in ER and will be continued -Prior urine culture was E. coli that was resistant to cefazolin and Unasyn and intermediate to Augmentin Quality If No VTE Prophylaxis Answer both mechanical and pharmacologic: Reason no mechanical VTE proph: low risk/not indicated Reason no pharmacologic proph: low risk/not indicated Hospitalist MIPS Advance Care Plan I have confirmed that the patient's Advanced Care Plan is present, code status is documented, or surrogate decision maker is listed in patient medical record.: Yes Medication Reconciliation I have utilized all available resources to obtain, update and review the patients current medications (includes all prescriptions, OTC, herbals, cannabis, and nutritional supplements).: Yes
--- NOTE | 2024-11-16 20:20 | PC.NURSE ---
Attempted to call report. RN stated they were unaware that they were receiving a patient and stated she needed to give me a call back after speaking with her patient transport officer.
--- NOTE | 2024-11-16 21:20 | ADMGEN ---
This patient, Ania Nowak, was admitted to Medical Room 349-01. Patient/family oriented to hospital policies and general routines including ID bracelet, bed and alarms, visiting hours, pain management, procedures, bathroom and other care routines, personal items, smoking policy, room service/diet, and visiting hours. Information on how to activate the Rapid Response Team has been discussed. Patient/Family are encouraged to report perceived risks to care and to ask questions if they do not understand what they are told or what they should do.
[2024-11-17] MEDS: SODIUM CHLORIDE 0.9% IV 1,000 ML 100 ML IV CONT (05:51)
[2024-11-17 06:00] VITALS: BP 103/72; PULSE 67; RESP 20; TEMP 36.9; O2SAT 100
--- NOTE | 2024-11-17 07:59 | P.PNIM_ITS ---
Progress Note: A&P Assessment and Plan (1) Ureterolithiasis: Code(s): N20.1 - Calculus of ureter Status: Acute Assessment and Plan: * Partially or completely obstructing left ureteral stone 4 mm at the UVJ with hydroureter and findings to support UTI * Strain all urine and admit for Urology to see tomorrow * NPO after midnight for possible procedure tomorrow * Prior history of stones after first child born and now after second child was born. * Visualized passing of stone overnight, since then denies any abdominal pain or nausea * Urology consult still pending, appreciate any further recommendations (2) UTI (urinary tract infection): Qualifiers: Hematuria presence: with hematuria Urinary tract infection type: acute cystitis Qualified Code(s): N30.01 - Acute cystitis with hematuria Code(s): N39.0 - Urinary tract infection, site not specified Status: Acute Assessment and Plan: * UA with 4+ bacteria, 1+ leukocyte esterase, 51-100 WBCs with hematuria and ketones as well * Upon admission: WBC 13.3, afebrile * IV antibiotics (Rocephin) given in ER and will be continued * Prior urine culture was E. coli that was resistant to cefazolin and Unasyn and intermediate to Augmentin * 11/17: WBC 7.6 * Urine/blood cultures still pending Subjective Date/time seen: 11/17/24 07:59 Interval history: 29-year-old female patient admitted to the hospital with UTI and left ureteral stone. Patient reports she developed left sided abdominal cramping about a week ago and thought it was related to her period but symptoms would continue to come and go. 11/17/2024 Patient sitting comfortably in bed at time of examination. Denies any chest pain, shortness a breath, abdominal pain or nausea/vomiting at this time. Was experiencing abdominal discomfort and nausea yesterday but states that she was able to observe passing the stone overnight and since then has had no complaints of nausea or abdominal pain. Urology consult still pending, will appreciate any further recommendations. At this time blood work and vitals had remained stable and patient otherwise has no concerns or complaints at this time. Review of Systems Review of Systems: All systems reviewed & are unremarkable except as noted in HPI and below Exam Narrative: GENERAL: Well-appearing, well-nourished, and in no acute distress. HEAD: Normocephalic, atraumatic. EYES: EOMI. ENT: Nares clear, no rhinorrhea or epistaxis. Mucous membranes moist. NECK: Supple. CHEST: Clear to auscultation. No respiratory distress. HEART: Regular rate and rhythm. No murmur heard. Normal peripheral pulses. ABDOMEN: Normoactive bowel sounds. Minimal tenderness to the left lower quadrant. No rebound or rigidity. Mild left CVA tenderness EXTREMITIES: Normal range of motion. No edema. SKIN: Warm, dry, no rash. NEURO: No focal deficits. Alert and oriented x3 Objective Data Vital Signs Vital Signs: Vital Signs - 24 hr 11/16/24 13:59 11/16/24 14:57 11/16/24 17:56 Temperature 97.5 F L 98.2 F Pulse Rate 53 L 93 98 Respiratory Rate 16 18 16 Blood Pressure 168/88 H 155/92 H 127/66 Pulse Oximetry 100 100 99 Oxygen Delivery Room Air Fraction of Inspired Oxygen 11/16/24 18:57 11/16/24 19:30 11/16/24 21:15 Temperature 97.9 F Pulse Rate 68 65 Respiratory Rate 18 20 Blood Pressure 119/80 127/86 Pulse Oximetry 99 98 98 Oxygen Delivery Room Air Fraction of Inspired Oxygen 21 11/16/24 22:13 11/17/24 06:00 Temperature 98.4 F 98.4 F Pulse Rate 90 67 Respiratory Rate 20 20 Blood Pressure 129/69 103/72 Pulse Oximetry 100 100 Oxygen Delivery Fraction of Inspired Oxygen Intake/Output Intake/Output: Intake & Output 11/14/24 11/15/24 11/16/24 11/17/24 23:59 23:59 23:59 23:59 Intake Total 1050 1000 Output Total 400 Balance 1050 600 Meds/Results Medications: Active Medications Generic Name Dose Route Start Last Admin Trade Name Freq PRN Reason Stop Dose Admin Ceftriaxone Sodium 1 gm/ 50 mls @ 100 mls/hr 11/17/24 18:00 Sodium Chloride IVPB Q24H SAHRA Sodium Chloride 1,000 mls @ 100 mls/hr 11/16/24 18:30 11/17/24 05:51 Normal Saline Iv IV CONT 100 mls/hr .Q10H SAHRA Administration Morphine Sulfate 4 mg 11/16/24 18:30 Morphine Sulfate (*Crx) 4 Mg/Ml Inj IV PUSH Q2H PRN Pain Rated 7-10 Ondansetron HCl 4 mg 11/16/24 18:30 Ondansetron Inj 4 Mg/2 Ml Vial IV PUSH Q4H PRN Nausea Tamsulosin HCl 0.4 mg 11/16/24 21:00 11/16/24 18:54 Tamsulosin Hcl 0.4 Mg Capsule PO 0.4 mg HS SAHRA Administration Radiology Results: ITS Impressions Abdomen/Pelvis CT 11/16/24 17:03 IMPRESSION: 1. At least partially obstructing 4 mm stone at the left ureterovesicular junction with mild left hydroureter but without cathy hydronephrosis. Labs Labs: Laboratory Results - last 24 hr 11/16/24 11/16/24 11/16/24 16:37 16:41 18:44 WBC 13.3 H RBC 4.95 Hgb 15.9 H Hct 45.3 MCV 91.5 MCH 32.1 MCHC 35.1 RDW 12.3 Plt Count 180 MPV 12.2 H Immature Gran % (Auto) 0.5 Neut % (Auto) 89.9 H Lymph % (Auto) 7.8 L [place] % (Auto) 1.6 L Eos % (Auto) 0.0 Baso % (Auto) 0.2 Lymph # (Auto) 1.04 [place] # (Auto) 0.2 Eos # (Auto) 0.0 Baso # (Auto) 0.0 Abs Immat Gran (auto) 0.06 H Absolute Neuts (auto) 11.9 H Absolute Nucleated RBC 0.000 Nucleated RBC % 0.0 Sodium 141 Potassium 4.1 Chloride 106 Carbon Dioxide 23 Anion Gap 12 BUN 18 H Creatinine 0.99 Estim Creat Clear Calc 62 Estimated GFR > 60 Glucose 116 H Lactic Acid 1.1 Calcium 10.0 Total Bilirubin 0.8 AST 29 ALT 20 Alkaline Phosphatase 59 Total Protein 9.1 H Albumin 5.3 H Urine Color Dark yellow Urine Appearance Cloudy H Urine pH 7.0 Ur Specific [place] 1.032 Urine Protein 2+ H Urine Glucose (UA) Negative Urine Ketones 4+ H Ur Blood (Man) 3+ H Urine Nitrate Negative Urine Bilirubin Negative Urine Urobilinogen 1.0 Add Ur Microanalysis Reviewed Leukocyte Esterase Rfl 1+ H Urine RBC >100 H Urine WBC 51-100 H Ur Squamous Epith Cells Many H Urine Bacteria 4+ H Urine Casts 3-5 Urine Mucus Present POC Urine HCG, Qual Negative
[2024-11-17 08:00] VITALS: O2SAT 100
--- NOTE | 2024-11-17 08:30 | S_PTH ---
PATIENT: Ania Nowak LOC: [id number] U#:[id number] AGE/SX: 29/F ROOM: 349 RE11/16/[address]: Wei Guallpa MD : 1995 BED: 01 DIS: 11/17/2024 SPEC #: [id number] RECD: 11/17/24 10:18 STATUS: FUNMILAYO REQ #: [id number] [place]: 11/17/24 08:[address]: Frank,Az Motley DEPT: [facility] Surgical RECD BY: Rg Be ENTERED: 11/17/24 10:18 SP TYPE: Surgical OTHR DR: Rvoerto Lopez, PAJoseC Scarlet Roche MD CHEMICAL LABORATORY ASSISTANT PHYSICIAN Torsten Sylvester MD Tissues: A - Stone Procedures: Gross Exam Level 1 Crystalline Analysis
[2024-11-17 08:32] LABS: Hematocrit 38.0 % (37.0-47.0); Hemoglobin 13.4 g/dL (12.0-15.0); Immature Granulocyte Percent A 0.3 % (0-0.5); Lymphocytes Absolute Auto 2.12 K/mm3 (0.9-3.2); Mean Corpuscular HGB Conc 35.3 g/dl (32-36); Mean Corpuscular Hemoglobin 32.2 pg (26-34); Mean Corpuscular Volume 91.3 fl (80-100); Nucleated Red Blood Cells Absolute Auto 0.000 K/mm3 (0.0-0.012); Nucleated Red Blood Cells Perc 0.0 % (0.0-0.2); Platelet Count Result 141 k/mm3 (150-375); Red Blood Count 4.16 M/mm3 (4.2-5.4); White Blood Count 7.6 K/mm3 (4.5-10.0)
--- NOTE | 2024-11-17 08:54 | PC.NURSE ---
RN was unable to find order in computer for patient's kidney stone testing. RN spoke with lab and they were unable to find order. They stated for RN to send stone down with patient label for testing. RN tubed kidney stone down to lab with patient label.
[2024-11-17 09:03] LABS: Alanine Aminotransferase 15 U/L (6-35); Albumin Level 4.2 g/dL (3.5-5.1); Alkaline Phosphatase 45 U/L (38-126); Anion Gap 7 mmol/L (4-12); Aspartate Amino Transferase 23 U/L (14-36); Bilirubin,Total 1.3 mg/dL (0.2-1.3); Blood Urea Nitrogen 15 mg/dL (7-17); Calcium 8.7 mg/dL (8.4-10.2); Carbon Dioxide 23 mmol/L (22-30); Chloride 107 mmol/L (98-107); Estimated CRCL calculation 64 ml/min; Estimated Glomerular Filt Rate > 60; Glucose 86 mg/dL (65-110); Potassium 3.2 mmol/L (3.4-5.0); Sodium 137 mmol/L (137-145); Total Protein 6.9 g/dL (6.3-8.2)
[2024-11-17] MEDS: POTASSIUM CHLORIDE 20 MEQ PACKET (FOR LIQUID) PO (12:14)
--- NOTE | 2024-11-17 13:53 | P.CONUR_ITS ---
Assessment and Plan Assessment and plan (1) Left ureteral calculus: Code(s): N20.1 - Calculus of ureter Status: Acute Assessment and Plan: plan was for cysto, left retrograde, left ureteroscopy with stone extraction. Patient actually passed the stone. She will be discharged home. Stone should be sent for analysis. She will follow-up in 3-4 weeks time with a renal ultrasound to make sure there is no residual hydronephrosis. Urology Consult Note HPI Date Seen: 11/17/24 Time Seen: 07:00 Requesting Physician: Scarlet Roche MD Primary Care Provider: COMPUTER SYSTEMS SUPPORT SPECIALIST PHYSICIAN Consult Narrative Reason for consult: 4 mm left UVJ calculus Narrative: Ania Nowak is a 29 year old female was admitted through the emergency room with left renal colic and found to have a 4 mm left UVJ calculus. At the time my evaluation she was resting comfortably. She states that she has had multiple stones when she was with her 1st child 7 years ago. She now has another 4-month-old. Denies any fevers at home. Review of Systems 2 Review of Systems: All systems reviewed & are unremarkable except as noted in HPI and below PMFSH Social History Social History Smoking packs per day: 0.25 Smoking cigarettes per day: 5.0 Years smoked: 2 Smoking pack-years: 0.50 Smoking status: Current some day smoker Second hand tobacco smoke exposure: Yes Alcohol intake: never Substance use: current Substance use type: marijuana Lack of Transportation: No Lack of Food: Never True Current Housing: I Have Housing Concerned About Future Housing: No Difficulty Paying Gas/Electric Bills: No Difficulty Paying for Meds: No Currently Unemployed: No Education: Trade/Vocational Certificate Difficulty w/ Childcare or Family Care: No Spiritual care concerns: No Meds Home Medications and Allergies Home Medications ?Medication ?Instructions ?Recorded ?Confirmed ?Type No Home Medications 11/17/24 11/17/24 History Allergies Allergy/AdvReac Type Severity Reaction Status Date / Time Penicillins Allergy Headache Verified 11/16/24 13:58 Vital Signs Vital Signs - 24 hr 11/16/24 13:59 11/16/24 14:57 11/16/24 17:56 Temperature 36.4 C L 36.8 C Pulse Rate 53 L 93 98 Respiratory Rate 16 18 16 Blood Pressure 168/88 H 155/92 H 127/66 Pulse Oximetry 100 100 99 Oxygen Delivery Room Air Fraction of Inspired Oxygen 11/16/24 18:57 11/16/24 19:30 11/16/24 21:15 Temperature 36.6 C Pulse Rate 68 65 Respiratory Rate 18 20 Blood Pressure 119/80 127/86 Pulse Oximetry 99 98 98 Oxygen Delivery Room Air Fraction of Inspired Oxygen 21 11/16/24 22:13 11/17/24 06:00 11/17/24 08:00 Temperature 36.9 C 36.9 C Pulse Rate 90 67 Respiratory Rate 20 20 Blood Pressure 129/69 103/72 Pulse Oximetry 100 100 100 Oxygen Delivery Room Air Fraction of Inspired Oxygen 21 11/17/24 08:00 Temperature Pulse Rate Respiratory Rate Blood Pressure Pulse Oximetry Oxygen Delivery Room Air Fraction of Inspired Oxygen Exam 2 Const: General: cooperative, comfortable and no acute distress Resp: Effort & Inspection: normal respiratory effort Cardio: Rate: regular rate Rhythm: regular rhythm Results Labs 11/17/24 08:26 11/17/24 08:26 Labs: Short CBC 11/16/24 11/17/24 Range/Units 16:37 08:26 WBC 13.3 H 7.6 (4.5-10.0) K/mm3 Hgb 15.9 H 13.4 (12.0-15.0) g/dL Hct 45.3 38.0 (37.0-47.0) % Plt Count 180 141 L (150-375) k/mm3 BMP 11/16/24 11/17/24 16:37 08:26 Sodium 141 137 Potassium 4.1 3.2 L Chloride 106 107 Carbon Dioxide 23 23 BUN 18 H 15 Creatinine 0.99 0.95 Glucose 116 H 86 Calcium 10.0 8.7 Liver Function 11/16/24 11/17/24 Range/Units 16:37 08:26 Total Bilirubin 0.8 1.3 (0.2-1.3) mg/dL AST 29 23 (14-36) U/L ALT 20 15 (6-35) U/L Alkaline Phosphatase 59 45 (38-126) U/L Albumin 5.3 H 4.2 (3.5-5.1) g/dL Urine 11/16/24 Range/Units 16:37 Urine Color Dark yellow (Yellow) Urine Appearance Cloudy H (Clear) Urine pH 7.0 (5.0-9.0) Ur Specific [place] 1.032 (1.001-1.035) Urine Protein 2+ H (Negative) mg/dL Urine Glucose (UA) Negative (Negative) mg/dL
[2024-11-17 14:00] VITALS: BP 112/78; PULSE 70; RESP 14; TEMP 36.8; O2SAT 100
--- NOTE | 2024-11-17 14:12 | P.DS_ITS ---
DS: Admitting Diagnosis Discharge Date 11/17/2024 Admitting Diagnosis Left ureteral calculus, UTI DS: Discharge Diagnosis Discharge Diagnosis (1) Ureterolithiasis: Code(s): N20.1 - Calculus of ureter Status: Acute (2) UTI (urinary tract infection): Qualifiers: Hematuria presence: with hematuria Urinary tract infection type: acute cystitis Qualified Code(s): N30.01 - Acute cystitis with hematuria Code(s): N39.0 - Urinary tract infection, site not specified Status: Acute DS: Summary Hospital Course Reason for hospitalization: Ureteral stone with UTI Hospital Course: This is a 29-year-old female patient admitted to the hospital with UTI and left ureteral stone. Patient reports she developed left sided abdominal cramping about a week ago and thought it was related to her period but symptoms would continue to come and go. Today around noon she developed significant Left Upper Quadrant/flank discomfort that quickly moved to left sided pelvic pain with associated nausea and vomiting. In ER she had urine that had hematuria and signs of infection. Patient reports dysuria and urgency started this afternoon as well. She has a remote history about 6 years ago of having kidney stones that were seen on imaging and not found on cystoscopy indicating she was able to pass them in the interim between diagnosis and procedure. She notes that was around the time her first child was 8 months old. This time her second child is about 4 months old. Review of records shows that patient had a urinary tract infection in September of 2023 with culture that grew E. coli that was resistant to cefazolin and Unasyn and intermediate to Augmentin. She was treated that time with Cipro. On this visit she was given Rocephin in ER as this was sensitive and does not meet criteria for ESBL infection. Urology was consulted in ER and will see patient tomorrow with possibility of procedure so patient will be NPO after midnight. Overnight from 11/17, patient was able to pass the stone without surgical intervention. Urology saw the patient in the morning of 11/17 and cleared the patient for discharge with appropriate analysis of the ureteral stone. Blood in urine culture still pending at this time, however we do have sensitivities from previous admission and patient was pansensitive with intermediate resistance to Augmentin with an E coli infection of the urine. We will send the patient on Macrobid as she has shown previous susceptibility. Patient is amenable to this plan and currently does not have any fever, leukocytosis or concerning physical exam findings. Patient is otherwise hemodynamically stable can be discharged home with appropriate follow-up in the outpatient setting with Urology in 3 weeks for possible renal ultrasound. Discharge home Status at Discharge Functional status at discharge: independent ambulation Overall status at discharge: patient is back to baseline Time Spent with Patient Time attestation: Total time spent providing and/or coordinating discharge services: 35 Exam Narrative: GENERAL: Well-appearing, well-nourished, and in no acute distress. HEAD: Normocephalic, atraumatic. EYES: EOMI. ENT: Nares clear, no rhinorrhea or epistaxis. Mucous membranes moist. NECK: Supple. CHEST: Clear to auscultation. No respiratory distress. HEART: Regular rate and rhythm. No murmur heard. Normal peripheral pulses. ABDOMEN: Normoactive bowel sounds. No abdominal tenderness to palpation. No rebound or rigidity. No CVA tenderness EXTREMITIES: Normal range of motion. No edema. SKIN: Warm, dry, no rash. NEURO: No focal deficits. Alert and oriented x3 DS: Data Data Completed and Pending Pending studies at discharge: Pending at discharge 11/17/24 08:30 Surgical [PTH] Routine Labs on day of discharge: Labs from last 24 hours 11/17/24 11/16/24 11/16/24 08:26 18:44 16:41 WBC 7.6 RBC 4.16 L Hgb 13.4 Hct 38.0 MCV 91.3 MCH 32.2 MCHC 35.3 RDW 12.1 Plt Count 141 L MPV 12.0 H Immature Gran % (Auto) 0.3 Neut % (Auto) 66.3 Lymph % (Auto) 27.7 Jackson % (Auto) 4.7 Eos % (Auto) 0.5 Baso % (Auto) 0.5 Lymph # (Auto) 2.12 Jackson # (Auto) 0.4 Eos # (Auto) 0.0 Baso # (Auto) 0.0 Abs Immat Gran (auto) 0.02 Absolute Neuts (auto) 5.1 Absolute Nucleated RBC 0.000 Nucleated RBC % 0.0 Sodium 137 Potassium 3.2 L Chloride 107 Carbon Dioxide 23 Anion Gap 7 BUN 15 Creatinine 0.95 Estim Creat Clear Calc 64 Estimated GFR > 60 Glucose 86 Lactic Acid 1.1 Calcium 8.7 Total Bilirubin 1.3 AST 23 ALT 15 Alkaline Phosphatase 45 Total Protein 6.9 Albumin 4.2 Urine Color Urine Appearance Urine pH Ur Specific [place] Urine Protein Urine Glucose (UA) Urine Ketones Ur Blood (Man) Urine Nitrate Urine Bilirubin Urine Urobilinogen Add Ur Microanalysis Leukocyte Esterase Rfl Urine RBC Urine WBC Ur Squamous Epith Cells Urine Bacteria Urine Casts Urine Mucus POC Urine HCG, Qual Negative 11/16/24 16:37 WBC 13.3 H RBC 4.95 Hgb 15.9 H Hct 45.3 MCV 91.5 MCH 32.1 MCHC 35.1 RDW 12.3 Plt Count 180 MPV 12.2 H Immature Gran % (Auto) 0.5 Neut % (Auto) 89.9 H Lymph % (Auto) 7.8 L Jackson % (Auto) 1.6 L Eos % (Auto) 0.0 Baso % (Auto) 0.2 Lymph # (Auto) 1.04 Jackson # (Auto) 0.2 Eos # (Auto) 0.0 Baso # (Auto) 0.0 Abs Immat Gran (auto) 0.06 H Absolute Neuts (auto) 11.9 H Absolute Nucleated RBC 0.000 Nucleated RBC % 0.0 Sodium 141 Potassium 4.1 Chloride 106 Carbon Dioxide 23 Anion Gap 12 BUN 18 H Creatinine 0.99 Estim Creat Clear Calc 62 Estimated GFR > 60 Glucose 116 H Lactic Acid Calcium 10.0 Total Bilirubin 0.8 AST 29 ALT 20 Alkaline Phosphatase 59 Total Protein 9.1 H Albumin 5.3 H Urine Color Dark yellow Urine Appearance Cloudy H Urine pH 7.0 Ur Specific [place] 1.032 Urine Protein 2+ H Urine Glucose (UA) Negative Urine Ketones 4+ H Ur Blood (Man) 3+ H Urine Nitrate Negative Urine Bilirubin Negative Urine Urobilinogen 1.0 Add Ur Microanalysis Reviewed Leukocyte Esterase Rfl 1+ H Urine RBC >100 H Urine WBC 51-100 H Ur Squamous Epith Cells Many H Urine Bacteria 4+ H Urine Casts 3-5 Urine Mucus Present POC Urine HCG, Qual Discharge Plan Discharge Attending physician on discharge: Wei Guallpa Consulting providers: Torsten Sylvester; Roverto Lopez Discharging Clinician: Roverto Lopez Anticipated Discharge Date/Time: 11/17/24 14:07 Patient Disposition: Home Activity: unlimited Diet: regular Discharge Instructions: Discharge disposition: Home Take medications as prescribed. You will be prescribed Macrobid. Your blood urine cultures are still pending, so we will give you a call if these results showed resistance to the antibiotic to your being placed on. Monitor blood pressures Take caution while standing, rising, or moving Change positions slowly taking a break between each position change If you standing feel dizzy sit back down and take a break Encouraged to continue with yearly vaccinations Return to the emergency department if he developed sudden shortness of breath, chest pain, nausea, vomiting, upset stomach or intractable diarrhea Return to the emergency department if you develop fever greater than 101.5 Follow-up with the primary care physician within 1-2 weeks Follow-up with urology in 3 weeks for a renal ultrasound to make sure there is no residual hydronephrosis Thank you for choosing [facility] for your healthcare needs Patient Instructions: Antibiotic Form Patient Language: Pakistani Stand Alone Forms: General Discharge Information Follow-up/Referrals: Az Marie MD [Physician] - PHYSICIAN,[employer] [Primary Care Provider] - Discharge Medications: New nitrofurantoin monohyd/m-cryst [Macrobid] 100 mg capsule 100 mg PO Q12H 5 Days Qty: 10 0RF Rx Instructions: must administer with a meal/food No Action No Home Medications Date of admission: 11/16/24 18:30 Primary Care Provider: PHYSICIAN,[employer] Admitting Provider: Scarlet Roche Attending physician on admission: Scarlet Roche Condition: Stable
--- NOTE | 2024-11-19 08:06 | PC.NURSE ---
Urine cx shows no growth.
--- NOTE | 2024-11-24 09:38 | PC.NURSE ---
Blood cx show no growth.
== END 2024-11-17 15:03 | disposition home or self-care (01) ==
LOC: ANHED 18:30 → ANH3MED 11-17 06:51
PROVIDERS: Physician Assistant; Admitting Provider General Practice; Emergency Provider Physician Assistant; Visit Provider Internal Medicine
DX: N20.1 Calculus of ureter (principal); N30.01 Acute cystitis with hematuria
CPT/HCPCS: 36415; 74176; 80053; 81001; 81025; 82365; 83605; 85025; 87086; 88300; 96360; 96361; 96365; 96375; 99285; A9270; G0378; G0379; J0696; J1885; J2270; J2405; J7030